=== PATIENT | female | born 1990 | race African-American/Black ===

== ENCOUNTER 2016-07-07 19:06 | Emergency (ER) | payer OTHER ==
[~2016-07-07] VITALS: Ht 157.5 cm; Wt 78.0 kg
[~2016-07-07 19:06] MED LIST: APAP500; FLAGYL500 MG PO; IBUPROFEN 800800 M1 PO; MACROBID 100 M100 M1 PO; PRENATAL 1 PLU1 EACH PO
[2016-07-07 19:25] LABS: URINE BILIRUBIN NEGATIVE (Negative); URINE BLOOD 1+ (Negative); URINE COLOR YELLOW; URINE GLUCOSE-RANDOM* NEGATIVE (Negative); URINE KETONES NEGATIVE (Negative); URINE LEUKOCYTES-REFLEX 1+ (Negative); URINE PROTEIN (DIPSTICK) NEGATIVE (Negative); URINE SPECIFIC GRAVITY 1.015 (1.003-1.035); URINE UROBILINOGEN 0.2 E.U./dl (0.2-1.0)
[2016-07-07 19:31] LABS: CASTS None Seen /LPF (None Seen); CRYSTALS None Seen /LPF (None Seen); SQUAMOUS 4-10 Moderate /LPF (0-3); URINE RBC None Seen /HPF (0-2); URINE WBC-REFLEX 0-5 Rare /HPF (0-5)
[2016-07-07 19:40] LABS: ABSOLUTE NEUTROPHILS 3.8 thou/uL (1.4-8.2); BASOPHILS 0.3 % (0.0-2.0); EOSINOPHILS 2.6 % (0.0-3.0); HEMATOCRIT 39.7 % (37.0-47.0); HEMOGLOBIN 13.1 gm/dL (12.0-15.0); LYMPHOCYTES 18.5 % (24.0-44.0); MCH 28.1 pg (26.0-34.0); MONOCYTES 8.5 % (1.0-8.0); PLATELET COUNT 262 thou/uL (150-400); POLYS 70.1 % (36.0-66.0); RBC 4.67 mil/uL (4.20-5.00); RDW 14.1 % (10.5-14.5); WBC 5.4 thou/uL (4.0-11.0)
[2016-07-07 19:43] LABS: MANUAL DIFF NO
[2016-07-07] MEDS ORDERED: ONDANSETRON HCL4 M2 PO (19:44)
[2016-07-07] MEDS ORDERED: NAPROXEN DELAY500 M1 PO (19:44)
[2016-07-07] MEDS ORDERED: PROAIR HFA8.5 GM INH (19:44)
[2016-07-07] MEDS ORDERED: TESSALON PERLE100 MG PO (19:44)
[2016-07-07 19:48] LABS: CALCIUM 9.1 mg/dL (8.5-10.1); CREATININE 0.9 mg/dL (0.6-1.3); POTASSIUM 3.8 mmol/L (3.5-5.1)
[2016-07-07 19:54] LABS: ALBUMIN 3.9 g/dL (3.4-5.0); TOTAL BILIRUBIN 0.2 mg/dL (<0.1-1.0); TOTAL PROTEIN 8.1 g/dL (6.4-8.2)
[2016-07-07 20:42] VITALS: BP 121/72
== END 2016-07-07 20:43 | disposition home or self-care (01) ==
LOC: ER 19:06
PROVIDERS: Emergency Medicine
DX: J11.1 Influenza due to unidentified influenza virus with other respiratory manifestations (principal)